=== PATIENT | male | born 1990 | race Caucasian/White ===

== ENCOUNTER 2022-05-29 20:34 | Emergency (ER) | payer MEDICAID ==
[~2022-05-29] VITALS: Ht 185.4 cm; Wt 88.5 kg
--- NOTE | 2022-05-29 21:00 | NUR ---
Dr Anupama alaniz eval.
[2022-05-29 21:23] LABS: HEMATOCRIT 38.8 % (36.7-47.1); MEAN CORPUSCULAR HEMOGLOBIN 31.1 uug (23.8-33.4); MEAN CORPUSCULAR VOLUME 91.8 fL (73.0-96.2); PLATELET COUNT (AUTO) 317 K/uL (152-348)
[2022-05-29 21:37] LABS: BILIRUBIN,TOTAL 1.2 mg/dL (0.2-1.0); POTASSIUM 3.7 mmol/L (3.5-5.1); TOTAL PROTEIN, SERUM 7.2 g/dL (6.4-8.2)
[2022-05-29] MEDS ORDERED: ACETAMINOPHEN 325 MG TABLET ONE (22:42)
[2022-05-29] MEDS ORDERED: ASPIRIN 81 MG TAB.CHEW PO ONE (22:45)
[2022-05-29] MEDS ORDERED: ACETAMINOPHEN 325 MG TABLET PO ONE (22:45)
[2022-05-29] MEDS ORDERED: ASPIRIN 81 MG TAB.CHEW ONE (22:48)
[2022-05-29] MEDS ORDERED: DOXY100C5 PO (23:50)
--- NOTE | 2022-05-30 00:09 | NUR ---
Patient discharged to home in stable condition. Written and verbal after care instructions given. Patient verbalizes understanding of instructions. Stressed follow up or return to ER for worsening s/s.
[2022-05-30 00:10] VITALS: BP 124/66
== END 2022-05-30 00:10 | disposition home health service (06) ==
LOC: ER 20:38
DX: R07.9 Chest pain, unspecified (principal); J32.9 Chronic sinusitis, unspecified; F17.210 Nicotine dependence, cigarettes, uncomplicated; Z88.0 Allergy status to penicillin
CPT/HCPCS: 36415; 71045; 84484; 85025; 93005; A4663